=== PATIENT | female | born 1995 | race Caucasian/White ===

== ENCOUNTER 2017-06-17 20:55 | Outpatient (CLI) | payer BC ==
--- NOTE | 2017-06-18 10:05 | Ultrasound Report ---
DATE OF SERVICE: 06/17/2017 PELVIC ULTRASOUND: 06/17/2017 CLINICAL INDICATION: Right ovarian cyst. COMPARISON: None. FINDINGS; Transabdominal pelvic ultrasound performed for global evaluation. Transvaginal pelvic ultrasound performed for detailed evaluation. Real-time scanning performed and static images obtained. FINDINGS: The uterus is anteverted, measuring 7.2 x 5.1 x 3.8 cm. The endometrial echo complex measures 8 mm. No focal myometrial lesion is seen. The right ovary measures 2.9 x 2.2 x 2.0 cm, and contains an 1.9 x 1.8 x 1.5 cm hemorrhagic cyst. The left ovary measures 2.7 x 2.5 x 1.6 cm, and appears unremarkable. No free fluid is present. IMPRESSION: AN 1.9 CM HEMORRHAGIC RIGHT OVARIAN CYST. FOLLOWUP IN TWO-THREE CYCLES IS RECOMMENDED TO DOCUMENT RESOLUTION. TD: 06/18/2017 11:03
== END 2017-06-17 20:56 | disposition home or self-care (01) ==
LOC: DI 20:55
PROVIDERS: ATTEND Registered Nurse
DX: N83.201 Unspecified ovarian cyst, right side (principal)
CPT/HCPCS: 76830; 76856